=== PATIENT | female | born 1965 | race Caucasian/White ===

== ENCOUNTER 2017-08-26 17:21 | Emergency (ER) | payer OTHER ==
[~2017-08-26] VITALS: Ht 144.8 cm; Wt 43.2 kg
[~2017-08-26 17:21] MED LIST: ALLERGY D-12 T1 EACH PO; AMITRIPTYLINE H10 MG PO; BENTYL10 MG PO; LASIX20 MG PO; LEXAPRO20 MG PO; METFORMIN HCL500 MG PO; MULTIPLE VITAM1 EACH PO; NEURONTIN100 MG PO; SIMVASTATIN80 MG PO; VENTOLIN HFA18 GM IH; XANAX1 MG PO; XOPENEX0.63 MG/3 IH; ZETIA10 MG PO
[2017-08-26 18:09] LABS: HEMATOCRIT 34.6 % (36.0-46.0); HEMOGLOBIN 11.2 G/DL (11.9-15.5); MCH 31.4 PG (29.0-34.0); MCHC 32.4 G/DL (30.0-36.0); MCV 96.9 FL (83-99); PLATELET COUNT 266 K/uL (156-360); RBC DIS.WIDTH-CV 12.2 % (11.8-14.6); RBC DIS.WIDTH-SD 43.5 % (39-53); RED BLOOD COUNT 3.57 M/uL (3.80-5.20); WHITE BLOOD COUNT 6.6 K/uL (4.1-10.2)
[2017-08-26 18:21] LABS: CHLORIDE 113 mEq/L (99-109); SODIUM 141 mEq/L (136-147)
[2017-08-26 18:23] LABS: GLUCOSE 142 mg/dL (70-99)
[2017-08-26 18:27] LABS: CREATININE 1.4 mg/dL (0.6-1.3); GFR ESTIMATE (CALCULATED) 42 mL/min/
[2017-08-26 18:28] LABS: UREA NITROGEN (BUN) 27 mg/dL (9-23)
[2017-08-26 18:58] LABS: APPEARANCE CLOUDY ((CLEAR)); COLOR YELLOW ((YELLOW))
[2017-08-26 18:59] LABS: BILIRUBIN SMALL; BLOOD MODERATE; GLUCOSE (STRIP) NEGATIVE; KETONES NEGATIVE; LEUKOCYTES MODERATE; NITRITE NEGATIVE; PROTEIN (STRIP) 30; SPECIFIC GRAVITY 1.031 (1.000-1.030); UROBILINOGEN 0.2 MG/DL (0.2-1.0)
[2017-08-26 19:12] LABS: RED BLOOD CELLS 0-5 /HPF (0-5)
[2017-08-26 19:13] LABS: BACTERIA 2+ /HPF; EPITHELIAL CELLS 1+ /HPF; MUCUS RARE /LPF; UCUL ADDED? YES; WHITE BLOOD CELLS 15-20 /HPF (0-5)
[2017-08-26 20:29] LABS: TROP-I INTERPRETATION NEGATIVE; TROPONIN-I < 0.01 ng/mL (0.0-0.30)
[2017-08-26] MEDS ORDERED: KEFLEX500 MG PO (22:29)
[2017-08-26] MEDS ORDERED: KEPPRA500 MG PO (22:29)
[2017-08-26 22:40] VITALS: BP 138/83
== END 2017-08-26 22:57 | disposition home or self-care (01) ==
LOC: EME 17:21
PROVIDERS: Physician Assistant
DX: R56.9 Unspecified convulsions (principal); R41.82 Altered mental status, unspecified; N39.0 Urinary tract infection, site not specified; E11.9 Type 2 diabetes mellitus without complications; Z79.84 Long term (current) use of oral hypoglycemic drugs
CPT/HCPCS: 70450; 70496; 71046; 80048; 81003; 84484; 85027; 87086; 93005; J7030